=== PATIENT | female | born 1985 | race American Indian/Alaskan Native ===

== ENCOUNTER 2017-09-16 23:37 | Emergency (ER) | payer BC, OTHER ==
[2017-09-17 00:06] VITALS: BP 136/93
[2017-09-17] MEDS ORDERED: ASPIRIN PO ONE (01:10)
[2017-09-17 01:36] LABS: Basophils % (Auto) 0.6 % (0.0-1.8); Eosinophils # (Auto) 0.1 K/mm3 (0.0-0.4); Eosinophils % (Auto) 0.9 % (0.0-4.3); Hematocrit 43.6 % (30.3-42.9); Hemoglobin 14.8 gm/dl (10.1-14.3); Lymphocytes % (Auto) 50.8 % (13.4-35.0); Mean Corpuscular HGB Conc 34 % (30-34); Mean Corpuscular Hemoglobin 30 pg (28-32); Mean Corpuscular Volume 87 fl (79-97); Monocytes # (Auto) 0.4 K/mm3 (0.0-0.8); Monocytes % (Auto) 7.6 % (0.0-7.3); Platelet Count 291 K/mm3 (140-440); Red Cell Distribution Width 13.3 % (13.2-15.2)
[2017-09-17 01:43] LABS: BUN/Creatinine Ratio 8; Blood Urea Nitrogen 6 mg/dL (7-17); Calcium 9.3 mg/dL (8.4-10.2); Hemolysis Index 43
[2017-09-17 01:47] LABS: Bilirubin,Urine NEG (Negative); Blood,Urine NEG (Negative); Color,Urine Straw (Yellow); Protein,Urine <15 mg/dL mg/dL (Negative); Urobilinogen,Urine < 2.0 mg/dL (<2.0); WBC,Urine < 1.0 /HPF (0.0-6.0)
--- NOTE | 2017-09-17 03:40 | Emergency Department Report ---
ED Chest Pain HPI - General Chief Complaint: Chest Pain Stated Complaint: CHEST PAIN Time Seen by Provider: 09/17/17 03:07 Source: patient Mode of arrival: Ambulatory Limitations: No Limitations - History of Present Illness Initial Comments: Patient is a 13-year-old [place] female who possibly for 5 days ago was working out lifting weights doing butterflied chest and started having a little bit of sharp chest discomfort center chest. Patient states this hurts only when she moves in certain directions. Is not constant. Patient denies any shortness of breath cough nausea vomiting exertional chest pain pleuritic chest pain. Pain Location: substernal Pain Radiation: none Severity scale (0 -10): 5 Quality: sharp Consistency: now resolved, other (last seconds at a time) - Related Data Previous Rx's Medication Instructions Recorded Last Taken Type Prednisone [Prednisone 10 mg 10 mg PO .TAPER #1 tab.ds.pk 05/09/14 Unknown Rx (6-Day Pack, 21 Tabs)] Promethazine /Codeine 5 ml PO Q6H PRN #120 udc 05/09/14 Unknown Rx [Phenergan/Codeine 6.25-10 mg/5 ml] Ibuprofen [Motrin] 800 mg PO Q8HR PRN #15 tablet 09/17/17 Unknown Rx methOCARBAMOL [Robaxin TAB] 500 mg PO Q6H PRN #15 tablet 09/17/17 Unknown Rx Allergies Allergy/AdvReac Type Severity Reaction Status Date / Time No Known Allergies Allergy Unverified 05/09/14 13:27 Heart Score - HEART Score History: Slightly suspicious EKG: Normal Age: < 45 Risk factors: No known risk factors Troponin: < normal limit HEART Score: 0 ED Review of Systems ROS: Stated complaint: CHEST PAIN Other details as noted in HPI Comment: All other systems reviewed and negative ED Past Medical Hx - Past Medical History Previous Medical History?: No - Surgical History Past Surgical History?: No - Social History Smoking Status: Never Smoker - Medications Home Medications: Home Medications Medication Instructions Recorded Confirmed Last Taken Type Prednisone [Prednisone 10 mg 10 mg PO .TAPER #1 tab.ds.pk 05/09/14 Unknown Rx (6-Day Pack, 21 Tabs)] Promethazine /Codeine 5 ml PO Q6H PRN #120 udc 05/09/14 Unknown Rx [Phenergan/Codeine 6.25-10 mg/5 ml] Ibuprofen [Motrin] 800 mg PO Q8HR PRN #15 tablet 09/17/17 Unknown Rx methOCARBAMOL [Robaxin TAB] 500 mg PO Q6H PRN #15 tablet 09/17/17 Unknown Rx ED Physical Exam - General Limitations: No Limitations General appearance: alert, in no apparent distress - Head Head exam: Present: atraumatic, normocephalic - Eye Eye exam: Present: normal appearance - ENT ENT exam: Present: mucous membranes moist - Neck Neck exam: Present: normal inspection - Respiratory Respiratory exam: Present: normal lung sounds bilaterally. Absent: respiratory distress - Cardiovascular Cardiovascular Exam: Present: regular rate, normal rhythm. Absent: systolic murmur, diastolic murmur, rubs, gallop - GI/Abdominal GI/Abdominal exam: Present: soft, normal bowel sounds - Extremities Exam Extremities exam: Present: normal inspection - Back Exam Back exam: Present: normal inspection - Neurological Exam Neurological exam: Present: alert, oriented X3 - Psychiatric Psychiatric exam: Present: normal affect, normal mood - Skin Skin exam: Present: warm, dry, intact, normal color. Absent: rash ED Course Vital Signs 09/16/17 09/17/17 23:48 01:04 Temperature 98.0 F 98.0 F Pulse Rate 95 H 90 Respiratory 18 18 Rate Blood Pressure 136/93 136/93 O2 Sat by Pulse 99 99 Oximetry ED Medical Decision Making - Lab Data Result diagrams: 09/17/17 01:18 09/17/17 01:18 - EKG Data -: EKG Interpreted by Ny - EKG Data Interpretation: other (patient's EKG shows sinus tachycardia 102 normal axis normal intervals no ST segment elevations or depressions as interpreted at 2316 as a sinus tachycardia) - Radiology Data Radiology results: report reviewed, image reviewed No acute process - Medical Decision Making Patient is a 32-year-old black female very atypical chest pain. Patient's pain is most likely a muscular and in the pectoral minor patient be discharged home. Critical care attestation.: If time is entered above; I have spent that time in minutes in the direct care of this critically ill patient, excluding procedure time. ED Disposition Clinical Impression: Chest wall discomfort Disposition: - TO HOME OR SELFCARE Is pt being admited?: No Does the pt Need Aspirin: No Condition: Fair Instructions: Chest Pain (ED), Musculoskeletal Pain (ED) Prescriptions: Ibuprofen [Motrin] 800 mg PO Q8HR PRN #15 tablet PRN Reason: Pain methOCARBAMOL [Robaxin TAB] 500 mg PO Q6H PRN #15 tablet PRN Reason: Pain Referrals: [facility]ARE,MD [Primary Care Provider] - 3-5 Days
--- NOTE | 2017-09-17 03:46 | XRay Report ---
FINAL REPORT EXAM: XR CHEST ROUTINE 2V HISTORY: chest pain COMPARISON: None available. FINDINGS:: Frontal and lateral views of the chest obtained. Cardiac silhouette is within normal limits. No focal consolidation or effusion. No pneumothorax. Visualized bony thorax is grossly intact. IMPRESSION:: No acute findings.
== END 2017-09-17 03:51 | disposition home or self-care (01) ==
LOC: ED 23:37
DX: R07.89 Other chest pain (principal)
CPT/HCPCS: 36415; 71046; 80048; 81001; 84484; 84703; 85025; 93005; 93010

== ENCOUNTER 2020-08-01 23:52 | Emergency (ER) | payer BC ==
[2020-08-02 00:25] VITALS: BP 128/95
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
== END 2020-08-02 00:41 | disposition home or self-care (01) ==
LOC: ED 23:52
DX: R51.9 Headache, unspecified (principal); Z79.1 Long term (current) use of non-steroidal anti-inflammatories (NSAID); Z79.899 Other long term (current) drug therapy; V49.49XA Driver injured in collision with other motor vehicles in traffic accident, initial encounter; Y93.89 Activity, other specified; Y92.89 Other specified places as the place of occurrence of the external cause; Y99.8 Other external cause status
CPT/HCPCS: 99282